=== PATIENT | female | born 1975 | race Hispanic/Latino ===

== ENCOUNTER 2019-09-12 00:11 | Emergency (ER) | payer SELFPAY ==
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
--- NOTE | 2019-09-12 01:18 | Cat Scan Report ---
{null, CT HEAD WITHOUT CONTRAST INDICATION: Head injury TECHNIQUE: Axial slices were obtained through the head. Coronal and sagittal reformatted images were obtained. COMPARISON: None available. FINDINGS: There is no intracranial hemorrhage or extra-axial fluid collection. Ventricles, basilar cisterns, an d sulci appear within normal limits for age. There is no mass lesion or midline shift. No acute aneudy torial infarct is identified. Bone windows demonstrate no acute osseous abnormality. Paranasal sinuses and mastoid air cells appear clear. TECHNIQUE: All CT scans at this facility use dose modulation, iterative reconstruction, automated ex posure control, weight based dosing, when appropriate, to reduce radiation dose to as low as reasonab ly achievable. IMPRESSION: 1. No acute intracranial abnormality. Signer Name: Hernán Prescott MD Signed: 09/12/2019 1:13 AM Workstation Name: [id number] }
[2019-09-12 02:12] VITALS: BP 129/85
== END 2019-09-12 03:05 | disposition home or self-care (01) ==
LOC: ED 00:11
DX: S00.03XA Contusion of scalp, initial encounter (principal); I10 Essential (primary) hypertension; W50.0XXA Accidental hit or strike by another person, initial encounter; Y93.89 Activity, other specified; Y92.89 Other specified places as the place of occurrence of the external cause; Y99.8 Other external cause status
CPT/HCPCS: 70450